=== PATIENT | female | born 1980 | race Caucasian/White ===

== ENCOUNTER 2016-09-11 11:32 | Emergency (ER) | payer MEDICAID ==
[~2016-09-11] VITALS: Ht 170.2 cm; Wt 75.7 kg
[2016-09-11 12:02] VITALS: BP 120/83
== END 2016-09-11 12:53 | disposition home or self-care (01) ==
LOC: ED 12:30
DX: J03.90 Acute tonsillitis, unspecified (principal); F17.200 Nicotine dependence, unspecified, uncomplicated
CPT/HCPCS: 99283

== ENCOUNTER 2019-08-29 20:03 | Emergency (ER) | payer MEDICAID ==
[~2019-08-29] VITALS: Ht 172.7 cm; Wt 65.0 kg
[2019-08-29 20:08] VITALS: BP 135/84
[2019-08-29] MEDS ORDERED: LORazepam 1MG TABLET ONE (20:46)
--- NOTE | 2019-08-29 20:49 | NUR ---
VERBAL ORDER FROM YENY FOR 60MG PO PREDISONE AND 1MG ATIVAN PO. PT MEDICATED PER ORDER.
[2019-08-29] MEDS ORDERED: LORazepam 1MG TABLET PO ONE (21:00)
== END 2019-08-29 21:23 | disposition home or self-care (01) ==
LOC: ED 20:25
DX: M32.9 Systemic lupus erythematosus, unspecified (principal); A46 Erysipelas; R06.02 Shortness of breath; F17.200 Nicotine dependence, unspecified, uncomplicated
CPT/HCPCS: 99283; J7512

== ENCOUNTER 2019-11-25 01:21 | Emergency (ER) | payer MEDICAID ==
[~2019-11-25] VITALS: Ht 167.6 cm; Wt 69.4 kg
[2019-11-25 01:32] VITALS: BP 167/98
--- NOTE | 2019-11-25 02:01 | NUR ---
PT RESTING IN CHAIR IN ROOM AT THIS TIME; AWAITING ERP. PT AMBULATED FROM TRIAGE TO ROOM WITH STEADY GAIT.
--- NOTE | 2019-11-25 02:40 | NUR ---
PT D/C WITH D/C SUMMARY AND SCRIPT. PT AMBULATES TO REGISTRATION DESK WITH STEADY GAIT FOR D/C HOME. ALL QUESTIONS ANSWERED. PT DENIES ANY OTHER NEEDS PERTAINING TO THIS VISIT AND VERBALIZES UNDERSTANDING OF F/U INSTRUCTIONS.
== END 2019-11-25 02:43 | disposition home or self-care (01) ==
LOC: ED 01:51
DX: H10.022 Other mucopurulent conjunctivitis, left eye (principal)
CPT/HCPCS: 99283

== ENCOUNTER 2020-01-02 03:45 | Emergency (ER) | payer MEDICAID ==
[~2020-01-02] VITALS: Ht 167.6 cm; Wt 69.4 kg
--- NOTE | 2020-01-02 04:02 | NUR ---
PT TO ED WITH LEFT SIDED FACIAL SWELLING AND PRURITIS X3 DAYS, DENIES HX OF ALLERGIES. ALSO REPORTS PAIN AND BURNING WITH URINATION X2 WEEKS, WAS ADMITTED WITH KIDNEY STONE AND UTI APPX X2 WEEKS AGO, DISCHARGED [id number] AGO AND PRESCRIBED ABX, UNABLE TO FILL PRESCRIPTION. PT DENIES ANY OTHER MEDICAL C/O AT THIS TIME. MONITORING APPLIED, CALL LIGHT WITHIN REACH, ALL SAFETY MEASURES IN PLACE.
[2020-01-02] MEDS ORDERED: THIAMINE 100MG TABLET ONE (04:59)
[2020-01-02] MEDS ORDERED: FAMOTIDINE 20 MG TABLET ONE (04:59)
[2020-01-02] MEDS ORDERED: THIAMINE 100MG TABLET PO ONE (05:00)
[2020-01-02] MEDS ORDERED: FAMOTIDINE 20 MG TABLET PO ONE (05:00)
[2020-01-02 05:20] VITALS: BP 131/96
--- NOTE | 2020-01-02 05:20 | NUR ---
PT MEDICATED PER MAR. MONITORING IN PLACE, CALL LIGHT WITHIN REACH.
== END 2020-01-02 06:05 | disposition home or self-care (01) ==
LOC: ED 04:39
DX: L03.211 Cellulitis of face (principal); J34.0 Abscess, furuncle and carbuncle of nose; L03.213 Periorbital cellulitis; L55.0 Sunburn of first degree; F10.10 Alcohol abuse, uncomplicated; F15.10 Other stimulant abuse, uncomplicated; F17.210 Nicotine dependence, cigarettes, uncomplicated; Y90.9 Presence of alcohol in blood, level not specified
CPT/HCPCS: 99284; J7512